=== PATIENT | male | born 1980 | race Caucasian/White ===

== ENCOUNTER 2018-11-13 12:38 | Emergency (ER) | payer OTHER ==
--- NOTE | 2018-11-13 13:47 | EDPHY ---
H & P Time Seen by Provider: 11/13/18 13:06 HPI/ROS: This patient developed a painful area of swelling to his back over the past week that persist and has intensified terms of pain in increase in size despite Epsom salt soaks to the area. He believes he has an abscess and he relates that he has had and soft tissue infection from staff in the past including an episode that required hospitalization. He does not recall the name MRSA. He notes no significant exacerbating factors except for tenderness to the area of swelling. He is accompanied by his girlfriend. ROS: Constitutional: No fevers Integumentary: No other skin lesions currently. No drainage from the existing skin lesion Cardiovascular: No lightheadedness GI: No nausea vomiting 5 point review of symptoms is performed and otherwise negative with exception of pertinent positives and negatives listed in HPI and ROS Smoking Status: Heavy smoker Physical Exam: Physical Exam Vital signs are normal. General: No acute distress Eyes: Pupils equal and react to light. Extraocular motions are intact. Lungs: No respiratory distress. Cardiac: Brisk capillary refill is intact throughout. Skin: There is a 4 by 3 cm area of fluctuance with associated erythema and warmth to touch to the patient's right lower back. No other significant skin lesions are noted. Neuro: Alert and oriented x3 with no sensorimotor deficits. Initial differential diagnosis: Abscess with associated cellulitis-question MRSA verses staff for strep Constitutional: Initial Vital Signs Temperature (C) 36.8 C 11/13/18 12:50 Heart Rate 114 H 11/13/18 12:50 Respiratory Rate 18 11/13/18 12:50 Blood Pressure 129/94 H 11/13/18 12:50 O2 Sat (%) 97 11/13/18 12:50 O2 Delivery Mode Room Air Allergies/Adverse Reactions: No Known Allergies Allergy (Unverified 11/13/18 12:50) Home Medications: Medication Instructions Recorded Doxycycline Hyclate [Vibramycin 100 mg PO BID #20 cap 11/13/18 100 MG (*)] MDM/Departure - MDM Procedures: The patient's abscess was located patient's right lumbar back region. After verbal consent was obtained from the patient I anesthetized the wound using a 50 -50 mix of 0.5% Marcaine and 1% lidocaine. The wound was scrubbed with a shampoo and saline by our tech. Under sterile conditions I incised the wound using a #15 scalpel, making a T-shaped incision 1 cm x 1 cm. I then probed the wound using a Myriam clamp breaking up loculations. I then massaged the area expressing purulent material. A wound culture was obtained and is pending. Finally, I irrigated the cavity using saline with a 60 mL syringe and a 20- gauge Angiocath 120 mL saline until there is clear return. The wound was packed with quarter-inch gauze, bacitracin was applied and a dressing was placed. The patient tolerated the procedure well. There were no complications. ED Course/Re-evaluation: The patient refused a culture. Understands that he may have MRSA. I started him regarding wound care Discussion: Patient with abscess-drained with associated skin cellulitis. Of cover him with doxycycline considering possible MRSA. Packing is placed and patient is clear from will assist with wound care plan for packing removal in to 3 days and then daily cleaning. He understands need to return emergency department should develop any significant worsening of symptoms despite treatment plan. - Depart Disposition: Home, Routine, Self-Care Clinical Impression: Abscess and cellulitis of back Condition: Good Instructions: Doxycycline (By mouth), Cellulitis (ED), Abscess (ED) Additional Instructions: Diagnosis: Abscess and cellulitis of back Plan: Apply warm packs to 3 times a day Leave dressing in place for the next 2 days. After 2-3 days-pull the packing and then clean the wound with warm soapy water daily thereafter. Doxycycline antibiotic as prescribed Ibuprofen Tylenol for pain as needed Return for any significant worsening despite the treatment plan Stand Alone Forms: Work Excuse Prescriptions: Doxycycline Hyclate [Vibramycin 100 MG (*)] 100 mg PO BID #20 cap Referrals: NONE *PRIMARY CARE P,. [Primary Care Provider] - As per Instructions Mark Sky MD [Medical Doctor] - As per Instructions
[2018-11-13 14:15] VITALS: BP 115/92
== END 2018-11-13 14:10 | disposition home or self-care (01) ==
LOC: CED 12:38
PROC: 0H96XZZ Drainage of Back Skin, External Approach (ICD-10-PCS; principal; 2018-11-13)
DX: L02.212 Cutaneous abscess of back [any part, except buttock and flank] (principal); L03.319 Cellulitis of trunk, unspecified
CPT/HCPCS: 99283-ER